=== PATIENT | male | born 1935 | race Caucasian/White ===

== ENCOUNTER → 2017-01-08 | Outpatient (CLI) | payer OTHER ==
--- NOTE | 2017-01-08 16:52 | CR ---
EXAMINATION: Left and right shoulders HISTORY: Pain COMPARISON: None TECHNIQUE: 3 views bilaterally FINDINGS: There is no acute osseous abnormality, dislocation, or fracture identified. Bone mineraliz ation and joint spaces appear grossly preserved bilaterally. 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 IMPRESSION: Mild degenerative changes without acute findings.
== END ==
LOC: MW.CHORTHO 07:40
PROVIDERS: ATTEND Orthopaedic Surgery
DX: M25.511 Pain in right shoulder (principal); M25.512 Pain in left shoulder
CPT/HCPCS: 73030-26-LT; 73030-26-RT; 73030-LT; 73030-RT